=== PATIENT | male | born 1950 | race Caucasian/White ===

== ENCOUNTER 2024-01-03 05:57 | Emergency (ER) | payer MEDICARE ==
[2024-01-03] MEDS ORDERED: Morphine 4 MG/ML VIAL ONE (07:17)
[2024-01-03 07:42] LABS: #Basophils 0.06 10x3/uL (0.0-0.2); %Basophils 0.7 % (0.0-1.0); %Eosinophils 3.4 % (0.0-10.0); %Lymphocytes 38.1 % (21.0-51.0); %Monocytes 9.6 % (0.0-10.0); Hematocrit 44.1 % (42.0-52.0); Hemoglobin 15.3 g/dL (14.0-18.0); Mean Corpuscular HGB CONC 34.7 g/dL (32.0-36.0); Mean Corpuscular Hemoglobin 29.7 pg (27.0-31.0); Mean Corpuscular Volume 85.5 fL (78.0-98.0); Mean Platelet Volume 9.4 fL (7.4-10.4); Platelet Count 250 10x3/uL (130-400); RBC Distribution Width 13.5 % (11.5-14.5); Red Blood Cell (RBC) Count 5.16 mill/uL (4.70-6.10)
[2024-01-03 08:05] LABS: Lipase 301 U/L (8-78)
[2024-01-03 08:32] LABS: Bacteria/HPF None Seen HPF (None Seen); Bilirubin Negative (Negative); Blood, Urine Negative (Negative); CAUTI Indications for Culture Pelvic or flank pain; Clarity Clear (Clear); Glucose, Urine (Dipstick) Normal (Negative); Ketone, Urine Negative (Negative); Leukocyte Negative Leu/uL (Negative); Nitrite Negative (Negative); Protein, Urine (Dipstick) Negative (Neg-Trace); RBC/HPF None Seen HPF (0-3); Specific Gravity, Urine 1.007 (1.002-1.036); Squamous Epithelial None Seen HPF (0-3); Urobilinogen Normal mg/dL (Less than 2); WBC/HPF 0-3 HPF (0-3); pH, Urine 5.5 (5.0-9.0)
[2024-01-03 08:38] LABS: Urine Culture Reflex No No
[2024-01-03 08:44] LABS: ALT (SGPT) 22 U/L (8-55); AST (SGOT) 19 U/L (5-34); Alkaline Phosphatase 119 U/L (40-110); Anion Gap 11 mmol/L (10-20); BUN (Urea Nitrogen) 9 mg/dL (8.4-25.7); Bilirubin, Total 0.7 mg/dL (0.2-1.2); Calc. Creatinine Clearance 0 mL/min (70-130); Calcium 9.1 mg/dL (7.8-10.44); Carbon Dioxide 24 mmol/L (23-31); Chloride 106 mmol/L (98-107); Estimated GFR 91; Globulin 3.3 g/dL (2.4-3.5); Glucose 106 mg/dL (83-110); Potassium 4.3 mmol/L (3.5-5.1); Protein, Total 7.3 g/dL (5.8-8.1); Sodium 137 mmol/L (136-145)
[2024-01-03] MEDS ORDERED: Iopamidol-370 76% 500 ML MDV (1 ML CHARGE) ONE (11:57)
== END 2024-01-03 10:28 | disposition home or self-care (01) ==
LOC: ERS 05:57
DX: R10.9 Unspecified abdominal pain (principal); R10.811 Right upper quadrant abdominal tenderness; I10 Essential (primary) hypertension; E78.5 Hyperlipidemia, unspecified; Z79.899 Other long term (current) drug therapy
CPT/HCPCS: 74177; 76705; 80053; 81001; 83690; 85025; J2272; 96374; Q9967

== ENCOUNTER 2024-01-21 08:25 | Outpatient (CLI) | payer MEDICARE | END 2024-01-21 08:26 | disposition home or self-care (01) | LOC: NM 08:25 | PROVIDERS: ATTEND Psychiatry & Neurology Neurology | DX: R26.89 Other abnormalities of gait and mobility (principal) | CPT/HCPCS: 78803; A9584 ×2 ==

== ENCOUNTER 2024-05-12 08:41 | Day surgery (SDC) | payer MEDICARE ==
[2024-05-12] MEDS ORDERED: Sodium Bicarbonate 2.5 MEQ/5 ML SDV ONE (09:27)
== END 2024-05-12 12:15 | disposition home or self-care (01) ==
LOC: RAD 08:41
PROVIDERS: ATTEND Neurological Surgery
PROC: 009U3ZX Drainage of Spinal Canal, Percutaneous Approach, Diagnostic (ICD-10-PCS; principal; 2024-05-12)
DX: G91.2 (Idiopathic) normal pressure hydrocephalus (principal); M48.062 Spinal stenosis, lumbar region with neurogenic claudication; M19.90 Unspecified osteoarthritis, unspecified site; E78.5 Hyperlipidemia, unspecified; I10 Essential (primary) hypertension; G43.909 Migraine, unspecified, not intractable, without status migrainosus; E66.9 Obesity, unspecified; G47.33 Obstructive sleep apnea (adult) (pediatric); Z98.890 Other specified postprocedural states; Z79.899 Other long term (current) drug therapy; Z98.49 Cataract extraction status, unspecified eye; Z96.653 Presence of artificial knee joint, bilateral; Z96.611 Presence of right artificial shoulder joint; Z96.612 Presence of left artificial shoulder joint; Z79.82 Long term (current) use of aspirin
CPT/HCPCS: 62270

== ENCOUNTER 2024-05-24 08:22 | Outpatient (CLI) | payer MEDICARE | END 2024-05-24 08:23 | disposition home or self-care (01) | LOC: LABBT 08:22 | PROVIDERS: ATTEND Neurological Surgery | DX: Z01.810 Encounter for preprocedural cardiovascular examination (principal); G91.2 (Idiopathic) normal pressure hydrocephalus | CPT/HCPCS: 93005; 93010 ==